=== PATIENT | male | born 1965 | race African-American/Black ===

== ENCOUNTER 2016-11-22 10:10 | Observation (INO) | payer OTHER ==
[~2016-11-22] VITALS: Ht 180.3 cm; Wt 98.0 kg
--- NOTE | ~2016-11-22 | CT71 ---
[facility] A Service of [facility] RADIOLOGY TEXT RESULTS PATIENT: AKILAH BECKER LOCATION: [place] [address] : [birth year] UNIT #: [id number] AGE: [address]: Meliton Valdivia MD SEX: M ORDER DR: [id number] [place] [id number] [facility] [place], [place] [address] [id number] E MR#: [id number] Acc #: [id number] NAME: AKILAH BECKER : 1965 SEX: M STUDY DATE/TIME: 11/22/2016 12:36 UNIT: [place] ROOM: STUDY DESCRIPTION: CT Head Wo Contrast Attending Physician: Radha Wilson M.D. Ordering Physician: Radha Wilson M.D. Primary Care Physician: Kaushal Marquis M.D. MEDICAL IMAGING REPORT This report is preliminary unless electronic signature is present EXAM CT head without contrast DATE 11/22/2016 HISTORY Headache and blurred vision for 3 months. History of kidney cancer. COMPARISON Noncontrast CT head, 04/18/2007. TECHNIQUE Axial noncontrast images were obtained from the skull base to the vertex. This CT exam was performed with one or more of the following radiation dose reduction techniques: automatic exposure control, adjustment of mA and/or kV according to patient size, and iterative reconstruction. FINDINGS Ventricular size and configuration are normal. There is no evidence of acute infarct or hemorrhage. There are no extraaxial fluid collections. No mass lesion or mass effect is seen. There are no skull fractures. IMPRESSION Normal noncontrast head CT. Dictated by... Mireya Latham M.D. THIS IS AN ELECTRONICALLY VERIFIED REPORT [facility] A Service of [facility] RADIOLOGY TEXT RESULTS PATIENT: AKILAH BECKER LOCATION: [place] [address] : [birth year] UNIT #: [id number] AGE: [address]: Meliton Valdivia MD SEX: M ORDER DR: Mireya Latham M.D. at 11/23/2016 1:53 PM CHAR/vicente TD: 11/22/2016 16:47 JOB #: [id number] MEDICAL IMAGING REPORT Page 1 of 1 COPY
--- NOTE | ~2016-11-22 | HP ---
Unit #: [id number] #: [id number] Patient: AKILAH BECKER [id number] [address] [place], [place] [address] [id number] I MR#: [id number] NAME: AKILAH BECKER. ROOM: 563 Age: 51 Sex: M Admission Date: 11/22/2016 : 1965 Attending Physician: Meliton Valdivia M.D. Primary Care Physician: Kaushal Marquis M.D. HISTORY AND PHYSICAL HISTORY OF PRESENT ILLNESS This is a 51-year-old white male who presented to the emergency room because of headache and chest pain. The patient states he has had a headache that has been persistent for the past one year, occurring on a daily basis. There is partial relief with Tylenol. He thought that his headache was because his blood pressure has been elevated. He went to his primary care physician and was started on a new antihypertensive medication, but it was discontinued two days later because of chronic kidney disease. Also, for the past two weeks he has complained of left anterior chest pain that radiates to his left neck and jaw and into his left arm. He has occasional shortness of breath. The pain is constant and it made worse with deep inspiration. The pain is also worse when he lies on his left side. There is partial relief of his chest pain with Tylenol. He is very active on his job and states that the chest pain does not occur with activity. He came to the emergency room for evaluation. His blood pressure was elevated at 172/96 mmHg. Blood pressure improved after sublingual nitroglycerin times three. Troponin was negative with no ischemic changes on electrocardiogram. PAST MEDICAL HISTORY 1. Hypertension. 2. Gastroesophageal reflux disease. 3. Chronic kidney disease. 4. Renal cancer, status post right nephrectomy. 5. Diverticulitis, status post colon resection. 6. Lifelong nonsmoker. PAST SURGICAL HISTORY As stated above. 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 He is very active with no complaint of chest pain with activities. He has never smoked. He denies illicit drug and alcohol use. FAMILY HISTORY Questionable heart disease in his mother. ALLERGIES No known drug allergies. HOME MEDICATIONS 1. Toprol XL 100 mg daily. 2. Hydralazine 25 mg t.i.d. Unit #: [id number] #: [id number] Patient: AKILAH BECKER. Norvasc 10 mg daily. REVIEW OF SYSTEMS CONSTITUTIONAL: Negative for fever or chills. There is no weight gain or weight loss. Denies fatigue and weakness. HEENT: Positive for headache. No hearing or visual changes or difficulty swallowing. CARDIOVASCULAR: As described in history of present illness. Denies palpitations. No paroxysmal nocturnal dyspnea or orthopnea. No syncope or near syncope. RESPIRATORY: Dyspnea that accompanies chest pain. No cough or hemoptysis. GASTROINTESTINAL: No abdominal pain, nausea, vomiting, constipation or melena. EXTREMITIES: Does report occasional extremity edema. PHYSICAL EXAMINATION GENERAL: This is a well-developed 51-year-old male who is in no acute distress. VITALS: Blood pressure 172/96 to 152/88, heart rate 92, temperature 98.2, BMI 30. NECK: Trachea midline. No thyromegaly or lymphadenopathy. No (1) . LUNGS: Clear without rales, rhonchi or wheezing. HEART: S1 and S2. Heart sounds are normal. No murmurs, rubs or clicks. Regular rate and rhythm. ABDOMEN: Soft and nontender with bowel sounds present. EXTREMITIES: Without leg edema. SKIN: Warm and dry. NEUROLOGIC: he is awake, alert and oriented. No focal weakness. DIAGNOSTIC STUDIES IMAGING: Chest x-ray showed low lung volumes. LABORATORY: Hemoglobin 12.8, hematocrit 39.0, platelet count 172, white count 9.2, sodium 136, potassium 3.9, BUN 22, creatinine 1.6, glucose 294. Troponin less than 0.05. CARDIOVASCULAR: Electrocardiogram normal sinus rhythm with a rate of 98 beats per minute, with left anterior vesicular block and left axis deviation. ASSESSMENT 1. Intractable headache. 2. Chest pain, questionably ischemic in origin. 3. Uncontrolled hypertension. 4. Chronic kidney disease stage 3. 5. Hyperglycemia. 6. History of renal cancer, status post right nephrectomy. PLAN 1. The patient's chest pain is atypical for significant ischemic heart disease. Will continue to tend troponins to rule out myocardial infarction. EKG will also be repeated. If troponin and EKG remain unchanged, will proceed with exercise Cardiolite stress test in the a.m. 2. Control blood pressure with increased hydralazine and metoprolol. 3. Orthostatic blood pressures will be obtained. 4. Two-dimensional echocardiogram will be done to evaluate for left Unit #: [id number] #: [id number] Patient: AKILAH BECKER ventricular systolic function. 5. The patient has chronic kidney disease and is followed by Dr. Johnson. Will consult nephrology for renal management, especially if cardiac catheterization is warranted. 6. The patient demonstrates hyperglycemia. Will obtain hemoglobin A1c to rule out diabetes. ADDENDUM The patient underwent exercise Cardiolite stress test, where he ambulated on the treadmill for 6 minutes 1 second. His blood pressure was elevated at 230/108 mmHg. There were no electrocardiogram changes. Images show no stress induced ischemia, but ejection fraction of 46%. Echocardiogram is currently pending. Orthostatic blood pressure was normal. Dr. Johnson saw the patient during his stay for chronic kidney disease stage 3. His creatinine on admission was 1.6, but today's creatinine is 1.4. Hemoglobin A1c was 8.9. The patient has new onset diabetes mellitus and needs to be seen by endocrine. Will await Dr. Atwood's consult. Cholesterol was 213, triglycerides 433, with LDL not done and HDL 30. TSH was 2.12. The patient's headache resolved. He can be discharged home today after seen by Dr. Atwood. Follow up with primary care physician in one to two weeks. Follow up with Dr. Valdivia on 01/24/2017 at 2;30 p.m. DISCHARGE MEDICATIONS 1. Amlodipine 10 mg daily. 2. Metoprolol succinate 100 mg b.i.d. 3. Hydralazine 50 mg daily. 4. Aspirin 81 mg daily. 5. Lisinopril 20 mg b.i.d. Further medications as per Dr. Atwood. Dictated by Jason Hernández A.P.R.N. for Sachin Myers TD: 11/23/2016 15:07 JOB #: [id number] CC: [facility] Kaushal Marquis M.D. HISTORY AND PHYSICAL Page 1 of 1 X Jason Hernández APRN HISTORY AND PHYSICAL
--- NOTE | ~2016-11-22 | EKG ---
PATIENT: AKILAH BECKER UNIT #: [id number] Ventricular Rate: 88 BPM Atrial Rate: 88 BPM P-R Interval: 128 ms QRS Duration: 80 ms Q-T Interval: 374 ms QTC Calculation(Bezet): 452 ms P [place]: 45 degrees Calculated R [place]: -48 degrees Calculated T [place]: 42 degrees Diagnosis Line: Normal sinus rhythm Diagnosis Line: Left anterior fascicular block Diagnosis Line: Minimal voltage criteria for LVH, may be normal Diagnosis Line: variant Diagnosis Line: Nonspecific T wave abnormality Diagnosis Line: Abnormal ECG Diagnosis Line: When compared with ECG of 15-SEP-2015 23:23, Diagnosis Line: Criteria for Septal infarct are no longer Present Diagnosis Line: Confirmed by TE RICHARDSON MD ([id number]) on 11/23/2016 Diagnosis Line: 5:02:15 PM INTERPRETING MD: DYLAN PRIETO
--- NOTE | ~2016-11-22 | EKG ---
PATIENT: AKILAH BECKER UNIT #: [id number] Ventricular Rate: 75 BPM Atrial Rate: 75 BPM P-R Interval: 122 ms QRS Duration: 90 ms Q-T Interval: 406 ms QTC Calculation(Bezet): 453 ms P [place]: 45 degrees Calculated R [place]: -46 degrees Calculated T [place]: 40 degrees Diagnosis Line: Normal sinus rhythm with sinus arrhythmia Diagnosis Line: Left anterior fascicular block Diagnosis Line: Minimal voltage criteria for LVH, may be normal Diagnosis Line: variant Diagnosis Line: Nonspecific T wave abnormality Diagnosis Line: Abnormal ECG Diagnosis Line: When compared with ECG of 22-NOV-2016 10:22, Diagnosis Line: (unconfirmed) Diagnosis Line: No significant change was found Diagnosis Line: Confirmed by TE RICHARDSON MD ([id number]) on 11/23/2016 Diagnosis Line: 5:10:59 PM INTERPRETING MD: DYLAN PRIETO
--- NOTE | ~2016-11-22 | CR72 ---
[facility] A Service of [facility] RADIOLOGY TEXT RESULTS PATIENT: AKILAH BECKER LOCATION: [facility] : [birth year] UNIT #: [id number] AGE: [address]: Radha Wilson MD SEX: M ORDER DR: [id number] [facility] [address] [facility]. [place], [place] [address] [id number] E MR#: [id number] Acc #: [id number] NAME: AKILAH BECKER : 1965 SEX: M STUDY DATE/TIME: 11/22/2016 UNIT: [facility] ROOM: STUDY DESCRIPTION: CR Chest Single View Portable Attending Physician: Radha Wilson M.D. Ordering Physician: Radha Wilson M.D. Primary Care Physician: Kaushal Marquis M.D. MEDICAL IMAGING REPORT This report is preliminary unless electronic signature is present EXAM Chest portable 11/22/2016 11:18 hours HISTORY 51-year-old man with chest pain, shortness of air, headache and neck pain. Symptoms began 3 weeks ago. COMPARISON 09/15/2015 FINDINGS Portable upright chest demonstrates lower lung volumes than on the prior study. The cardiac silhouette appears larger and the aorta appears more tortuous with mediastinal widening most likely related to the portable technique and lower lung volumes. The lungs are clear and there are no effusions. IMPRESSION Lower lung volumes with increased prominence of the cardiac silhouette aorta which may be technical given the lower lung volumes and portable technique compared to two-view chest film 09/15/2015. The lungs are clear and there are no effusions. Dictated by... Olga Pan M.D. THIS IS AN ELECTRONICALLY VERIFIED REPORT Olga Pan M.D. at 11/22/2016 2:34 PM SMM/ginny TD: 11/22/2016 14:08 JOB #: [id number] [facility] A Service [facility] RADIOLOGY TEXT RESULTS PATIENT: AKILAH BECKER LOCATION: [facility] #: [id number] : [birth year] UNIT #: [id number] AGE: [address]: Radha Wilson MD SEX: M ORDER DR: MEDICAL IMAGING REPORT Page 1 of 1 COPY
--- NOTE | ~2016-11-22 | TH ---
Unit #: [id number] #: [id number] Patient: AKILAH BECKER [id number] [address] [address] [id number] I MR#: [id number] NAME: AKILAH BECKER : 1965 SEX: M STUDY DATE/TIME: 11/23/2016 UNIT: [facility] ROOM: 563 STUDY DESCRIPTION: Cardiolite imaging Attending Physician: Meliton Valdivia M.D. Primary Care Physician: Kaushal Marquis M.D. CARDIOLOGY REPORT EXAM Cardiolite imaging. PROCEDURE Using technetium 99m labeled Cardiolite, rest and stress SPECT images were obtained. Multiple SPECT images were obtained in various views, including horizontal and vertical long axis and short axis views of the left ventricle. Images were obtained by gated SPECT method. The patient was administered 10.3 mCi of Cardiolite at rest. The patient was administered 28.6 mCi of Cardiolite at peak exercise. Total exercise time was 6 minutes. On the stress images there is normal perfusion noted. The rest images showed normal perfusion. Comparing rest and stress images there is no stress induced ischemia noted. The left ventricular ejection fraction is calculated to be 47%. There is no focal wall motion abnormality seen. CONCLUSION 1. No stress induced ischemia noted. 2. The left ventricular ejection fraction is calculated to be 46%. 3. There is no focal wall motion abnormality seen. 4. Normal exercise Cardiolite stress test. 5. It must be noted that the left ventricular ejection fraction was calculated to be 47%. Clinical correlation is requested. Dictated by... Sachin Naranjo TD: 11/23/2016 13:52 JOB #: [id number] CC: Meliton Valdivia M.D. CARDIOLOGY REPORT Page 1 of 1 X Gely Alcala MD <ELECTRONICALLY SIGNED> 12/20/16 1524 CARDIOLOGY REPORT
--- NOTE | ~2016-11-22 | ST ---
Unit #: [id number] #: [id number] Patient: AKILAH BECKER [id number] [address] [address] [id number] I MR#: [id number] NAME: AKILAH BECKER. : 1965 SEX: M STUDY DATE/TIME: 11/23/2016 UNIT: [facility] ROOM: 563 STUDY DESCRIPTION: Cardiac stress test. Attending Physician: Meliton Valdivia M.D. Primary Care Physician: Kaushal Marquis M.D. CARDIOLOGY REPORT EXAM Cardiac stress test. REASON FOR EXAM Chest pain. DISCUSSION Baseline EKG reveals sinus rhythm with a ventricular rate of 85 beats per minute. Left axis deviation. Nonspecific ST-T wave changes. Poor R wave progression. The patient exercised on the treadmill for a total of 6 minutes 1 second. Maximum workload achieved was 7.0 METS. Maximal heart rate was 152 beats per minute, which represents 96% of the maximal age-predicted heart rate. Maximum blood pressure was 230/108 mmHg. There were no complaints of chest pain. There were no sustained arrhythmias noted. There were no ST or T wave changes to suggest ischemia. The test was stopped due to protocol completion and hypertension. IMPRESSION 1. Negative EKG portion of exercise Cardiolite stress test. 2. There were no complaints of chest pain. 3. There were no sustained arrhythmias noted. 4. There were no ST or T wave changes to suggest ischemia. 5. The patient's blood pressure was elevated, but his hydralazine and metoprolol were increased today. Dictated by... Nyla Fulton APRN for Sachin Naranjo TD: 11/23/2016 13:21 JOB #: [id number] Unit #: [id number] #: [id number] Patient: AKILAH BECKER CARDIOLOGY REPORT Page 1 of 1 X CARDIOLOGY REPORT
--- NOTE | ~2016-11-22 | CO ---
Unit #: [id number] #: [id number] Patient: AKILAH PRICE [id number] [address] [place], [place] [address] [id number] I MR#: [id number] NAME: AKILAH PRICE ROOM: 563 Age: 51 Sex: M Admission Date: 11/22/2016 : 1965 Attending Physician: Meliton Valdivia M.D. Primary Care Physician: Kaushal Marquis M.D. Consultation Date: 11/22/2016 CONSULTATION REPORT REASON FOR CONSULT Renal insufficiency. HISTORY Thank you very much for asking us to see this patient in consultation again. Mr. Price is a 51-year-old male who I have seen in the past with some renal insufficiency. He underwent a partial right nephrectomy in the past. The patient presented to the hospital today with a few days of severe intermittent headache, some shortness of breath with chest discomfort. No nausea or vomiting. The patient states over the last few weeks he was noted to have increasing blood pressure. He saw his primary M.D., at which time he initially started him on lisinopril HCTZ, along with his Metoprolol and amlodipine. Several weeks ago was called and told to stop that due to his renal insufficiency and was started on hydralazine. The patient states in the past (and I do not have these records) that I did stop his lisinopril sometime in the last couple years due to his renal insufficiency, but I do not have those records at this time. In reviewing his records, upon presentation he had a creatinine of 1.6. In May he had creatinine of 1.8; in April of 2015 a creatinine of 1.7. He denies any nonsteroidal use. PAST MEDICAL HISTORY 1. History of partial right nephrectomy. 2. History of chronic kidney disease, stage 3 now, with creatinine ranging between 1.6 to 2. 3. History of diverticulitis status post colectomy in the past. 4. History of hypertension. 5. Pancreatitis. 6. History of arthritis. 7. History of gastroesophageal reflux disease. SOCIAL HISTORY He is . No smoking. No alcohol. ALLERGIES No known drug allergies. MEDICATIONS Medicines at home include hydralazine, amlodipine and Metoprolol. FAMILY HISTORY His family history is noncontributory. REVIEW OF SYSTEMS Unit #: [id number] #: [id number] Patient: AKILAH PRICE As mentioned in the HPI. Denies any fevers, chills, visual problems, sinus problems. No cough or hemoptysis. No neck pain. He denies any history of abdominal pain, nausea, vomiting, diarrhea. He denies any urinary symptoms - starting, stopping, burning. No significant lower extremity swelling. No recent seizures, strokes or skin rashes. PHYSICAL EXAMINATION GENERAL: He is alert and oriented. VITAL SIGNS: Temperature is 98, pulse 81 to 97, blood pressure 156 to 172/85 to 96. HEENT: Normocephalic, atraumatic. Pupils are equal, round and reactive to light. Extraocular muscles are intact. Hearing appears to be normal. Mouth is clear. No erythema, no exudate. NECK: Supple. No JVD. No adenopathy. CARDIAC: He has a regular rate and rhythm without a rub. No S3 or S4. LUNGS: He initially had a few rhonchi on his left base, but cleared after several deep breaths. Otherwise, the lungs are clear. ABDOMEN: Bowel sounds are positive. Nontender, soft. EXTREMITIES: He has no significant lower extremity swelling. His pulses are intact in upper and lower extremities. MUSCULOSKELETAL: No joint pain, joint swelling. SKIN: No rashes. NEUROLOGIC: Appears intact to motor and sensory grossly. : Deferred. DIAGNOSTIC STUDIES IMAGING: Chest x-ray showed some cardiomegaly but no evidence of any failure. CT of his head was negative. LABORATORY DATA: His sodium is 136, potassium 3.9, chloride 103, bicarb 24, BUN and creatinine 22 and 1.6, glucose 294, calcium 9.2. BNP is only 21. Hemoglobin is 12.8, white count 9,200, platelets 177,000. ASSESSMENT AND PLAN 1. Chronic kidney disease, stage 3. The patient's renal function appears fairly stable. Again, he is ranging the last several years or so with creatinine of 1.6 up to the 2 range. Certainly, is probably combination of hypertension and partial nephrectomy. Again, I have not seen him in the office for a while. According to him, he was supposed to actually see me tomorrow since his primary physician asked him to reschedule to help assess with his blood pressure. For now, will go ahead and check a urinalysis, check a random urine protein, creatinine. Certainly would avoid nonsteroidals, MESSINA-2 inhibitors, long-term PPIs and other nephrotoxins if possible. Certainly with his chest pain and shortness of breath, there is some discussion of cardiac workup. At this point in time his creatinine clearance is around 57 mL/minute. Although mild risk, should tolerate contrast dye. I have discussed this with the patient and told him, if needed, certainly cannot guarantee anything, but his kidney function appears to be stable, so waiting would not make a big difference. Certainly, if needed, I would consider mild hydration, put him on an HMG-CoA reductase inhibitor. Certainly, I do not see a reason why we could not use an SHAQUILLE inhibitor on him long-term; however, I am going to hold off to see if he needs any type of contrast study secondary to the risk of the SHAQUILLE inhibitor causing acute renal failure in contrast procedures. Unit #: [id number] #: [id number] Patient: AKILAH PRICE 2. Hypertension. Certainly agree with blood pressure medications and adjust again. If no cardiac workup is indicated at this time, again, would consider putting him on an SHAQUILLE inhibitor. I do not have any recent urine to see if he has any proteinuria or not, but certainly, with his hypertension, renal insufficiency, and possible diabetes, if he had proteinuria, certainly an SHAQUILLE inhibitor would be of benefit. 3. Possible diabetes. I am looking at his sugars, and it has been ranging in the mid to high 100s and now 294 when he came in here. Certainly appears he may have new onset diabetes or at least over the last few months or more. I am going to go ahead and order a hemoglobin A1C for tomorrow and ask endocrinology to evaluate. 4. Chest pain, shortness of breath. Per cardiology. Thank you very much. Dictated by... Ankit Johnson M.D. JOSÉ MIGUEL/anabella TD: 11/23/2016 10:18 JOB #: [id number] CONSULTATION REPORT Page 1 of 1 X Joy Johnson MD CONSULTATION REPORT
--- NOTE | ~2016-11-22 | CO ---
Unit #: [id number] #: [id number] Patient: AKILAH PRICE [id number] [address] [place], [place] [address] [id number] MR#: [id number] NAME: AKILAH PRICE. ROOM: 563 Age: 51 Sex: M Admission Date: 11/22/2016 : 1965 Attending Physician: Meliton Valdivia M.D. Primary Care Physician: Kaushal Marquis M.D. Consultation Date: 11/23/2016 CONSULTATION REPORT REASON FOR CONSULTATION Diabetes mellitus type 2. HISTORY OF PRESENT ILLNESS Akilah Price is a 51-year-old black male who presented to the emergency room for chest pain and headache. He was found to have very high blood pressure at 172/96. Additionally, he had a very high blood sugar. He has never been diagnosed with a history of type 2 diabetes mellitus. A1c is 8.9. I have been asked to see the patient for further management. PAST MEDICAL HISTORY 1. Renal cell cancer, status post right nephrectomy. 2. Chronic kidney disease. 3. History of diverticulitis, status post colon resection with reversal of colostomy. 4. Hypertension. 5. Gastroesophageal reflux disease. PAST SURGICAL HISTORY As above. SOCIAL HISTORY He works at [employer]. Very active. Never smoked. No illicit drugs or alcohol abuse. FAMILY HISTORY Unremarkable. ALLERGIES No known drug allergies. CURRENT MEDICATIONS List is reviewed. REVIEW OF SYSTEMS Twelve point review of systems is completed. Please see history of present illness. Otherwise unremarkable. PHYSICAL EXAMINATION GENERAL: He is awake, alert and oriented to time, place and person. VITALS: Stable. Temperature 98, blood pressure 153/86. HEENT: Extraocular muscles intact. Pupils equally reactive to light. NECK: Supple. No thyromegaly noted. CHEST: Good air entry. Unit #: [id number] #: [id number] Patient: AKILAH PRICE HEART: Regular rhythm. No murmurs. ABDOMEN: Soft and nontender. Bowel sounds positive. EXTREMITIES: No edema noted. NEUROLOGIC: Nonfocal. Moving all extremities. DIAGNOSTIC STUDIES LABORATORY: A1c is 8.9, creatinine 1.4, triglycerides 433, cholesterol 213. ASSESSMENT 1. Type 2 diabetes mellitus. Newly diagnosed, uncontrolled with A1c of 8.9%. 2. Chronic kidney disease. 3. Hypertension, uncontrolled. PLAN Discussed with the patient at length about the lifestyle modification. I advised him strongly to stop drinking regular sodas. The patient drinks a 2-liter per day of regular soda. Discussed at length about limiting his carbohydrates in the meals. Referred to diabetic education class as an outpatient and started glimepiride 1 mg b.i.d., breakfast and supper. Follow up in the office in six weeks. Dictated by... Sachin Maciel/georgi TD: 11/25/2016 10:05 JOB #: [id number] CONSULTATION REPORT Page 1 of 1 X Luis Atwood MD X CONSULTATION REPORT
--- NOTE | ~2016-11-22 | EKG ---
PATIENT: AKILAH BECKER UNIT #: [id number] Ventricular Rate: 83 BPM Atrial Rate: 83 BPM P-R Interval: 134 ms QRS Duration: 84 ms Q-T Interval: 386 ms QTC Calculation(Bezet): 453 ms P Bois D Arc: 53 degrees Calculated R Bois D Arc: -51 degrees Calculated T Bois D Arc: 52 degrees Diagnosis Line: Normal sinus rhythm Diagnosis Line: Left anterior fascicular block Diagnosis Line: Nonspecific T wave abnormality Diagnosis Line: Abnormal ECG Diagnosis Line: When compared with ECG of 22-NOV-2016 18:43, Diagnosis Line: (unconfirmed) Diagnosis Line: No significant change was found Diagnosis Line: Confirmed by TE RICHARDSON MD ([id number]) on 11/23/2016 Diagnosis Line: 5:15:35 PM INTERPRETING MD: DYLAN PRIETO
[~2016-11-22 10:10] MED LIST: AMLODIPINE BESYL5 MG PO; APAP325 MG PO; BENTYL20 MG PO; CLONIDINE1 EAC1 TD; COLACE PO; DEMEROL PO; HYDROCODON-ACE1 EAC9 PO; LISINOPRIL-HCTZ1 T19 PO; MOBIC PO; OMEPRAZOLE40 MG PO; PREVACID PO; ULTRAM PO; VICODIN 5/1 TAB 5/50 PO
[2016-11-22 11:54] LABS: POC - CKMB 1.3 ng/mL (0.0-7.9); POC - TROPONIN <0.05 ng/mL (<=0.05)
[2016-11-22 11:55] LABS: BASOPHIL# 0.1 X10e3 (0-0.3); BASOPHIL% 1.4 % (0-2.5); DIFF IND YES; EOSINOPHIL# 0.1 X10e3 (0-0.7); EOSINOPHIL% 1.3 % (0.0-7.0); HEMOGLOBIN 12.8 gm/dL (13.0-16.0); LYMPHOCYTE# 1.7 X10e3 (1.0-3.5); LYMPHOCYTE% 17.9 % (17.0-45.0); MEAN CELL VOLUME 84.3 FL (83-96); MEAN CORPUSCULAR HEMOGLOBIN 27.7 PG (28-34); MEAN CORPUSCULAR HGB CONC 32.9 g/dL (30-36); MONOCYTE# 0.5 X10e3 (0-1.0); MONOCYTE% 4.9 % (3.0-12.0); NEUTROPHIL# 6.9 X10e3 (1.5-7.1); NEUTROPHIL% 74.5 % (40-75); PLATELET COUNT 177 X10e3 (140-420); RED BLOOD COUNT 4.63 X10e (3.90-5.60); RED CELL DISTRIBUTION WIDTH 14.8 % (11.0-15.5); WHITE BLOOD COUNT 9.2 X10e3 (4.0-10.5)
[2016-11-22 12:11] LABS: PARTIAL THROMBOPLASTIN TIME 28.7 SECONDS (23.5-31.3); PROTHROMBIN TIME (PATIENT) 10.7 SECONDS (10.0-11.7)
[2016-11-22 12:16] LABS: ANISOCYTOSIS SL; PLATELET ESTIMATE NORMAL (NORMAL)
[2016-11-22 12:20] LABS: ALBUMIN SERUM 4.4 g/dL (3.5-5.0); BILIRUBIN, DIRECT 0.1 mg/dL (0.0-0.2); BILIRUBIN,INDIRECT 0.3 mg/dL (0.0-0.9); BILIRUBIN,TOTAL 0.4 mg/dL (0.2-2.0); BUN/CREATININE RATIO 13.75; CALCIUM SERUM 9.2 mg/dL (8.4-10.2); CREATININE SERUM 1.6 mg/dL (0.6-1.4); GLOM FILT RATE Estimated 56.6 mL/min (>60); POTASSIUM 3.9 mmol/L (3.5-5.1); PROTEIN TOTAL SERUM 7.4 g/dL (6.0-8.3)
[2016-11-22 13:27] LABS: POC - CKMB 1.4 ng/mL (0.0-7.9); POC - TROPONIN <0.05 ng/mL (<=0.05)
[2016-11-22] MEDS ORDERED: NORVASC10 MG PO (15:15)
[2016-11-22] MEDS ORDERED: HYDRALAZINE HCL25 MG PO (15:15)
[2016-11-22] MEDS ORDERED: TOPROL XL100 MG PO (15:15)
[2016-11-22 19:06] LABS: URINE APPEARANCE CLEAR; URINE BILIRUBIN NEG (NEG); URINE BLOOD NEG (NEG); URINE COLOR YELLOW; URINE GLUCOSE >1000 MG/DL (NEG); URINE KETONE NEG (NEG); URINE LEUKOCYTE ESTERASE NEG (NEG); URINE NITRATE NEG (NEG); URINE PH 6.5 (5-8); URINE PROTEIN 2+ (NEG); URINE SPECIFIC GRAVITY 1.018 (1.003-1.035); URINE UROBILINOGEN 0.2 MG/DL (NEG)
[2016-11-22 19:09] LABS: URINE BACTERIA AUWI NEG (NEGATIVE); URINE SQUAMOUS EPITHELIAL CELL NONE SEEN /[HPF]; UWBCS1 AUWI 0-2 (0-5)
[2016-11-23 03:08] LABS: %MB 1.2 % (0.0-4.0); MB 2.4 ng/ml
[2016-11-23 07:11] LABS: BUN/CREATININE RATIO 13.57; CALCIUM SERUM 9.2 mg/dL (8.4-10.2); CREATININE SERUM 1.4 mg/dL (0.6-1.4); GLOM FILT RATE Estimated 66.5 mL/min (>60)
[2016-11-23 07:14] LABS: CHOLESTEROL 213 mg/dL (0-200); HDL CHOLESTEROL 30 mg/dL (29-75)
[2016-11-23 07:15] LABS: TRIGLYCERIDES 433 mg/dL (10-160)
[2016-11-23] MEDS ORDERED: HYDRALAZINE HCL50 MG PO (16:37)
[2016-11-23] MEDS ORDERED: LISINOPRIL20 MG PO (16:37)
[2016-11-23] MEDS ORDERED: ASPIRIN81 MG PO (16:42)
[2016-11-23] MEDS ORDERED: BMP (LAB) (16:44)
[2016-11-23] MEDS ORDERED: GLIMEPIRIDE1 M1 PO (18:00)
[2016-11-26 11:44] LABS: ALDOSTERONE SERUM 1 ng/dL (***)
== END 2016-11-23 18:26 | disposition home or self-care (01) | DRG 103 ==
LOC: CED 10:10 → C5C 16:00 → CED 19:57 → C5C 19:57
PROVIDERS: Emergency Medicine; Internal Medicine Cardiovascular Disease; Internal Medicine Nephrology
DX: R51 Headache (principal); R07.9 Chest pain, unspecified; I12.9 Hypertensive chronic kidney disease with stage 1 through stage 4 chronic kidney disease, or unspecified chronic kidney disease; E11.22 Type 2 diabetes mellitus with diabetic chronic kidney disease; N18.3 Chronic kidney disease, stage 3 (moderate); E11.65 Type 2 diabetes mellitus with hyperglycemia; K21.9 Gastro-esophageal reflux disease without esophagitis; Z85.528 Personal history of other malignant neoplasm of kidney; Z79.899 Other long term (current) drug therapy
CPT/HCPCS: 36415; 70450; 71010; 78452; 80048; 80061; 80076; 81003; 82088; 82550; 82553; 83036; 83735; 83880; 84156; 84244; 84443; 84484; 85025; 85610; 85730; 93005; 93017; 93306; 99285; A9500; G0378; J1650